=== PATIENT | female | born 1970 | race Caucasian/White ===

== ENCOUNTER 2016-10-07 01:07 | Inpatient (IN) | payer MEDICAID ==
[~2016-10-07] VITALS: Ht 152.4 cm; Wt 89.9 kg
--- NOTE | ~2016-10-07 | CON ---
PATIENT'S NAME: JULIAN [facility] AGE: 46 Y [address] ROOM: [address] [place] [id number] LOCATION: [facility] ADMIT DATE: 10/07/2016 Consultation DISCHARGE DATE: 10/07/2016 FAMILY PHYSICIAN: DEIDRA GARCIA ATTENDING PHYSICIAN: Jeff Ingram DATE OF CONSULTATION: 10/07/2016 REFERRING PHYSICIAN: Luis Bynum MD CARDIOLOGY CONSULTATION REASON FOR CARDIOLOGY CONSULTATION: Elevated cardiac enzymes. HISTORY OF PRESENT ILLNESS: This is a 46-year-old female, who had a daily bout of diarrhea for a total of one month which did resolve about 2 weeks ago. She then presented to an outside Emergency Department in [place] due to lower extremity weakness that was getting worse in an ascending fashion. She also has notation of neck weakness as well as blurry vision. She denies any actual sharp chest pain or radiation. She also denies any changes of shortness of breath, or dyspnea on exertion. She did have complaints of abdominal pain which radiated more to the left upper quadrant. 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 This consult was requested due to an elevated set of cardiac enzymes. Of note, she also has noted hypokalemia. Her previous history includes lupus, fibromyalgia, and hypertension. PAST MEDICAL HISTORY: 1. Hypertension. 2. Fibromyalgia. 3. History of DVT. 4. History of multiple miscarriages. 5. History of oral cancer. 6. Systemic lupus. PAST SURGICAL HISTORY: 1. Cholecystectomy. 2. Tonsillectomy. 3. Right knee surgery. 4. Appendectomy. FAMILY HISTORY: The patient's mother had a history of uterine cancer as well as coronary stenting. She ultimately due to a stroke. Her father also PATIENT'S NAME: MIDLOTHIAN [facility] AGE: 46 Y [address] ROOM: [address] [place], [place] [address] LOCATION: [facility] ADMIT DATE: 10/07/2016 Consultation DISCHARGE DATE: 10/07/2016 FAMILY PHYSICIAN: DEIDRA GARCIA ATTENDING PHYSICIAN: Jeff Ingram due to stroke, and her maternal grandmother had a history of myocardial infarction and hypertension. SOCIAL HISTORY: The patient is a current daily smoker. She smoked for a total of 35 years and states she is currently attempting to quit. She denies alcohol or illicit drug use. CURRENT MEDICATIONS: 1. Octagam IV daily. 2. Lovenox 40 mg subcutaneous daily in the evening. 3. KCl 40 mEq IV. 4. Azactam 2 g IV every 8 hours. MEDICATION ALLERGIES: Penicillin causing "throat to swell up." REVIEW OF SYSTEMS: Pertinent positive review of systems are listed in the HPI. All other review of systems evaluated and negative. LABORATORY DATA AND IMAGING STUDIES: Diagnostics: Cardiac enzymes show a CPK of 965, CK-MB of 4.3, and a troponin I of 0.105. She has a proBNP of 700. She has a D-dimer of 0.78. CMS evaluation shows a sodium of 139, potassium 1.6, BUN of 18, creatinine 1.0, and a glucose of 126. She has a magnesium of 1.8. PHYSICAL EXAMINATION: VITAL SIGNS: Temperature 98.5, pulse 90, respirations 16, blood pressure 135/73, and O2 saturation 94% on room air. The patient weighs 89.9 kg. SKIN: [place], warm, and dry. EYES: Sclerae clear. No xanthelasmas. ENT: Oral mucosa is pink and moist. No jugular venous distention. No carotid bruits. CHEST: Respirations are even and unlabored. LUNGS: Clear to auscultation. HEART: Regular rate and rhythm. Normal S1 and S2. No murmurs, rubs, or gallops. ABDOMEN: Soft and tender, but not rigid. MUSCULOSKELETAL: She has noted decreased muscle strength to upper and lower extremities bilaterally. There is also loss of deep tendon reflexes. EXTREMITIES: Peripheral pulses palpable. No clubbing, cyanosis, or edema. PSYCHIATRIC: Alert and oriented. Mood and affect are appropriate. IMPRESSION AND PLAN: PATIENT'S NAME: MARISSA JORDAN [facility] AGE: 46 Y [address] ROOM: [address] [place], [place] [address] LOCATION: [facility] ADMIT DATE: 10/07/2016 Consultation DISCHARGE DATE: 10/07/2016 FAMILY PHYSICIAN: DEIDRA GARCIA ATTENDING PHYSICIAN: Jeff Ingram Dr.: 1. Acute coronary syndrome versus a type 2 cardiac event. We will check an echocardiogram to fully evaluate her ejection fraction as well as to look for wall motion or valvular abnormalities. We will also check a lipid panel, amylase, lipase, and further evaluate cardiac enzymes. We will also get a manual white blood cell count and differential. 2. 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 Once again, under the care of Hospitalist Service as well as Neurology and possible plans to transfer the patient to a higher level of care. 3. We will continue to monitor, evaluate, and treat as appropriate. Thank you for this consult. Thank for allowing [facility] to interact in the care of this patient. LILLIAN REYES APRN FOR SHA-MD JASON CHATTERJEE/jamesl /[id number] d: 10/07/16 2355 t: 10/09/16 1551, CONSULTATION REPORT
--- NOTE | ~2016-10-07 | DS ---
PATIENT'S NAME: JULIAN [facility] AGE: 46 Y [address] ROOM: [place] [address] LOCATION: [facility] ADMIT DATE: 10/07/2016 Discharge Summary DISCHARGE DATE: 10/07/2016 FAMILY PHYSICIAN: DEIDRA GARCIA ATTENDING PHYSICIAN: Jeff Ingram ATTENDING PHYSICIAN: Ford Santiago M.D. PRIMARY CARE PHYSICIAN: None. FINAL DIAGNOSES: 1. 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 2. Bilateral lower extremity weakness. 3. Recent history of diarrhea. 4. History of systemic lupus erythematosus, not on any medications. 5. Remote history of deep venous thrombosis, not on any anticoagulation. 6. History of fibromyalgia, per reviewed records. 7. History of oropharyngeal cancer, treated per the patient. 8. Severe hypokalemia, improving. 9. Rsk-LX-lftxdhp elevation myocardial infarction. 10. Sepsis. 11. Pancreatitis. 12. Right nephrolithiasis. 13. Right-sided abdominal pain. CONSULTATIONS: 1. Cardiology, Dr. Bynum. 2. Neurology, Dr. Mir. PROCEDURES: Lumbar puncture. REASON FOR ADMISSION: This is a 46-year-old female, who was transferred from [facility] for progressively worsening muscle weakness and lack of deep tendon reflexes in bilateral lower extremity. The patient also had diplopia and blurry vision. Of note, she had a history of diarrhea about a couple weeks ago. The patient presented to an outlying ER and was then transferred to [facility] for higher level of care. Please see Dr. Ingram's admission H and P for further details. DIAGNOSTIC STUDIES: While at [facility], transthoracic echocardiogram was done that showed normal left ventricular contractility with ejection fraction of 60% to 65%. Grade 1 diastolic dysfunction was noted. Lactate was 3.5 on admission. After hydration, it was 3.4 at the time of discharge. Serial cardiac enzymes were done. CPK 1144 on admission, with PATIENT'S NAME: JULIAN [facility] AGE: 46 Y [address] ROOM: [place] [address] LOCATION: [facility] ADMIT DATE: 10/07/2016 Discharge Summary DISCHARGE DATE: 10/07/2016 FAMILY PHYSICIAN: DEIDRA GARCIA ATTENDING PHYSICIAN: Jeff Ingram hydration was trending down, and was 828 by the time of discharge. Troponin I 0.074 and was trending up and was 0.131 at the time of discharge. ProBNP 700. CBC showed a white count of 17.3, hemoglobin 14.7, hematocrit 40.7, and platelets 402. CMP showed potassium of 1.6. After aggressive treatment with potassium, the patient's potassium at the time of transfer was 1.9. Kidney function test was within normal range. Bicarb 34. Albumin 2.7. Liver function tests were normal except for AST of 61. Phos level 1.7, GFR 59, Mag 1.8, LDH 166, and ESR 35. Lipid panel was done and showed total cholesterol 180, triglycerides 266, HDL 42, and LDL 85. PT, INR, and PTT normal. UA showed 25 leukocytes and moderate bacteria with wbc casts. Amylase 86. Lipase 903 on admission. CK-MB 4.6 and subsequently was trended down and was 3.4. CRP 8.33. Complement levels were done; complement C3 of 137 and complement C4 of 28. Free T4 of 1.4. Procalcitonin level 0.14. D-dimer was elevated at 0.78. TSH 0.921. Lumbar puncture was done and showed CSF protein 50 and CSF glucose was 82. Lumbar puncture showed clear CSF, showed 304 rbc's and 2 wbc's with 33% neutrophils. BRADFORD pending. Aldolase pending. ASMA pending. Anti-Alicia-1 antibody pending. Hypercoagulable workup pending. Chest x-ray was done on admission and showed no vascular congestion or acute parenchymal infiltrate. The patient had a PICC line placed that showed right tip in the lower SVC. CT of the head without contrast was done since the patient reported fall about a couple days ago. CT of the head showed no acute intracranial pathology and no skull fracture was identified. For bilateral lower extremity weakness, CT of the thoracic spine without contrast was done that showed 11th rib-thoracic vertebrae with transitional L1. Height and alignment of thoracic vertebra were well maintained with no acute bone fractures at the thoracic spine. Mild scoliosis and mild degenerative changes noted. CT of the lumbosacral spine was done and showed transitional L1 vertebra with no acute bone fracture. No spinal stenosis identified. Right nephrolithiasis noted. CT of the abdomen and pelvis with contrast was done and showed distended stomach and proximal small bowel loops like raising the possibility of small bowel obstruction. Early versus partial obstructions level of the mid small bowel with some nondilated distal small bowel loops seen on the CT study. Colon not evacuated. No arterial thrombus identified at the abdomen or pelvis. Fatty infiltration of the liver was noted. Dependent atelectasis at the lung bases was detected. Marrufo catheter present in the bladder. Blood cultures were drawn and are pending at this point of time. Urine culture drawn and pending. CSF showed no bacteria and rare white blood cells. PATIENT'S NAME: MARISSA JORDAN [facility] AGE: 46 Y [address] ROOM: [address] [address] LOC[facility] ADMIT DATE: 10/07/2016 Discharge Summary DISCHARGE DATE: 10/07/2016 FAMILY PHYSICIAN: DEIDRA GARCIA ATTENDING PHYSICIAN: Jeff Ingram [facility] COURSE: This is a 46-year-old female, who had a 2-week history of diarrhea. The patient then developed ascending bilateral lower extremity weakness and had areflexia. The patient was not able to move her bilateral lower extremity and strength was 2/5. The patient was transferred from [facility] for bilateral lower extremity weakness and hypokalemia. For hypokalemia, the patient was treated with KCl. She received a total of 160 mEq of KCl at [facility]. She was receiving IV and p.o. KCl. Her potassium level improving, but still had severe hypokalemia by the time of discharge. Her potassium on admission was 1.6, at the time of discharge was 1.9. EKG was done and did not show any changes or any arrhythmia. The patient was in normal sinus rhythm. Dr. Orellana was consulted early in AM for line placement but we had a peripheral IV at that time and a PICC line was recommended. PICC line was only placed just prior to transfer. Discussed with Pharmacy about rate of KCl infusion through peripheral line and KCl was infused at that rate along with PO KCl replacement. At the time of transfer to [facility], the patient was still infusing 40 mEq of KCl IV. She also received p.o. KCl, but then developed nausea and so could not be given p.o. KCl. The hypokalemia was likely thought to be secondary to the history of diarrhea that the patient had reported. The patient's magnesium level was normal. The patient did not have any diarrhea. She stated that the diarrhea had resolved about a week ago. Given the patient's history of diarrhea and subsequent bilateral lower extremity weakness in an ascending fashion, Neurology was consulted upon arrival at [facility]. Teleneurology, Dr. Mir, was consulted. It was thought that the patient was likely having Guillain-[place] syndrome. IVIG treatment was then initiated based on Neurology recommendations. The patient received a dose of IVIG at [facility]. Neurology saw the patient later during the day and differential also included viral demyelinating illness at this point of time. The patient required an EMG and nerve conduction study per Neurology. Since we did not have capability for an EMG and nerve conduction study and also were not able to have a neurologist on board at the site, it was determined that the patient needed a specialist for neuromuscular disorder and higher level of care. The patient was transferred to [facility] in stable condition. The patient also had leukocytosis. Her lactate was elevated. Blood cultures were drawn and were pending at this point of time. Urine culture was pending as well. The patient was started on Azactam prior to transfer. She was hydrated aggressively with IV fluids, receiving several boluses during the day. She was also infusing IV fluids at the time of discharge. Her blood pressure was stable. Lactate was decreasing. The patient also had a CT of the abdomen done and findings are as above. CT of the abdomen showed that the patient had right nephrolithiasis with no evidence of hydronephrosis on CT scan. The patient also had signs and symptoms suggestive of small bowel obstruction. She was made n.p.o. She was PATIENT'S NAME: MARISSA JORDAN [facility] AGE: 46 Y [address] ROOM: [place] [address] LOC[facility] ADMIT DATE: 10/07/2016 Discharge Summary DISCHARGE DATE: 10/07/2016 FAMILY PHYSICIAN: DEIDRA GARCIA ATTENDING PHYSICIAN: Jeff Ingram hydrated with IV fluids. Pain was well controlled with morphine. The patient also had concern for pancreatitis. Her lipase was 903 on admission. She was given IV antibiotics, IV fluids, and pain medication for pancreatitis as well. The patient has a history of SLE, not on any medications. She also has a history of DVT in the remote past and has finished a course of anticoagulation. She is currently not on any anticoagulation. She has a history of fibromyalgia as well and reported a history of oropharyngeal cancer, for which she was treated. The patient is a poor historian and was not able to give much history. The patient also had NSTEMI during this admission, unclear if this was secondary to sepsis. Her troponin was elevated and was trending upward. CPK was trending downward. Cardiology was consulted. No acute ST changes were noted. Dr. Bynum did a bedside echocardiogram and there were no wall motion abnormalities. Her ejection fraction was normal. We will trend cardiac enzymes. It was noted to the patient and her family that the patient required transfer to higher level of care and neurologist and neuromuscular specialist opinion. The patient will need an EMG and nerve conduction study for definitive diagnosis and further recommendations for GBS. She will also need treatment for severe hypokalemia and likely sepsis. Dr. Ordonez, hospitalist team, at [facility] was accepting physician. The patient will be transferred to [facility] in stable condition. At the time of transfer, the patient was in stable condition with stable vital signs, which were communicated to Dr. Ordonez. Her EKG showed normal sinus rhythm. DISCHARGE INSTRUCTIONS: The patient is n.p.o. currently. She is getting IV fluids at 70 mL/h. She is also getting KCl 40 mEq. She has a PICC line in place that was placed during this admission. PICC line was inserted just prior to discharge. She will be on bedrest. She will be transported by ground transport ambulance with ACLS support to [facility]. Accepting physician is Dr. Ordonez. The patient transferred to [facility] in stable condition. DISCHARGE MEDICATIONS: 1. Azactam 2 grams IV q.8 hours. 2. Normal saline at 70 mL/h. 3. KCl 40 mEq IV x1 over 4 hours. 4. Morphine 1 to 2 mg IV q.4 hours p.r.n. for pain. 5. IVIG treatment. IVIG 10%, 5-gram vial, 150 mL IV daily for 5 days. PATIENT'S NAME: MARISSA JORDAN [facility] AGE: 46 Y [address] ROOM: [address] [address] LOCATION: [facility] ADMIT DATE: 10/07/2016 Discharge Summary DISCHARGE DATE: 10/07/2016 FAMILY PHYSICIAN: DEIDRA GARCIA ATTENDING PHYSICIAN: Jeff Ingram First dose received at [facility] on 10/07/2016. 6. Zofran 4 mg IV q.4 hours p.r.n. for nausea/vomiting. All home medications were stopped since the patient was n.p.o. during this admission. This patient was managed by Hospitalist, Cardiology, and Neurology teams during this admission. FORD SANTIAGO MD MT/lloyd /[id number] d: 10/07/162012 t: 10/22/16 0415, DISCHARGE SUMMARY
--- NOTE | ~2016-10-07 | ECHO ---
Transthoracic Echocardiography Report (TTE) Demographics Patient Name MARISSA JORDAN Date of Study 10/07/2016 Patient Number [id number] Visit Number [id number] Date of 1970 Room Number [address] Gender Female Number Age 46 year(s) Referring Fletcher Bartholomew Pyrometer Operator Shiloh Alatorre MD [facility] Nataly Epstein MD Physician Interpreting [facility] [place] [employer] Professional Physician [place] Alatorre MD Supervising Ordering MD/MLP Physician Nurse Stress Office Equipment Technician Conclusions Contractility Score Summary Normal Left Ventricular contractility was noted. Summary The estimated left ventricular ejection fraction is 60-65%. Normal left ventricle size and function. Diastolic assessment reveals Grade I diastolic dysfunction. Mild tricuspid regurgitation by color Doppler. Procedure Type of Study TTE procedure:2D Echocardiogram. Procedure Date Date: 10/07/2016 Start: 12:35 PM Study Location: Inpatient Portable Technical Quality: Adequate visualization Indications:Abnormal ECG. Appropriate Use Criteria: 9 Patient Status: Routine HR: 94 bpm BP: 135/73 mmHg M-Mode/2D Measurements LV Diastolic Dimension: 3.89 cm LV Systolic Dimension: 2.54 cm LV Septum Diastolic: 1.04 cm LV PW Diastolic: 1.04 cm AO Root Dimension: 1.8 cm Cardiac Output: 5.31 l/min LA Dimension: 2.8 cm EF Estimated: 65 % LVOT: 2 cm LVOT VTI: 18 cm LV Stroke volume: 56.52 ml Doppler Measurements AV Peak Velocity: 1.97 m/s MV Peak E-Wave: 1.18 m/s AV Peak Gradient: 15.52 mmHg MV Peak A-Wave: 1.12 m/s AV Mean Gradient: 7 mmHg MV E/A Ratio: 1.05 LVOT Peak Velocity: 1.71 m/s MV P1/2t: 43 msec TR Gradient:10.24 mmHg PV Peak Velocity: 1.87 m/s Estimated RAP:10 mmHg PV Peak Gradient: 13.99 mmHg Estimated RVSP: 20 mmHg Estimated PASP: 20.24 mmHg E' Septal Velocity: 0.1 m/s A' Septal Velocity: 0.13 m/s E' Lateral Velocity: 0.12 m/s A' Lateral Velocity: 0.12 m/s Findings Left Ventricle Normal left ventricle size and function. Diastolic assessment reveals Grade I diastolic dysfunction. Right Ventricle Normal right ventricle structure and function. Left Atrium Normal left atrial size. Right Atrium Normal right atrial size. IVC measures 1.6 cm with inspiratory collapse. Mitral Valve Normal mitral valve structure and function. Aortic Valve Normal aortic valve structure and function. Tricuspid Valve Mild tricuspid regurgitation by color Doppler. Pulmonic Valve Normal pulmonic valve structure and function. Contractility Score LV regional wall motion:(0-Non visualized 1-Normal 2-Hypokinesis 3-Akinesis 4-Dyskinesis 5-Aneurysm) Signature dtt: Luis Bynum dtd: 10/07/16 1235 Physician Self Edit
--- NOTE | ~2016-10-07 | CON ---
PATIENT'S NAME: [facility] AGE: 46 Y [address] ROOM: [id number] [place], [place] [id number] LOCATION: [facility] ADMIT DATE: 10/07/2016 Consultation DISCHARGE DATE: FAMILY PHYSICIAN: DEIDRA GARCIA ATTENDING PHYSICIAN: ROHINI MEDEIROS DATE OF CONSULTATION: 10/07/2016 REFERRING PHYSICIAN: Luis Bynum MD TIME: 10:55 a.m. CHIEF COMPLAINT: Muscle weakness, diplopia, vertigo, and blurred vision. HISTORY OF PRESENT ILLNESS: This is a 46-year-old female who says she was having non-bloody diarrhea on a daily basis for around a month and that was resolved 2 weeks ago. Four days ago, she states she started having posterior neck muscle weakness where she was having a hard time lifting her head. She was also developing bilateral blurry vision and diplopia with vertigo. The neck weakness did resolve and the blurry vision and vertigo improved. Two days ago, she developed a new onset of bilateral lower extremity muscle weakness. This weakness started at both her feet and now it is up to her hips. She also at that time, developed some epigastric pain with radiation to the left upper quadrant. Currently, she denies any diarrhea, nausea, vomiting, or any constipation. Because of her symptoms, she went to a hospital in [place] for the worsening bilateral lower extremity weakness and now the weakness started affecting her upper extremities as well. She still has off and on bilateral blurry vision and diplopia. She has never had any of these symptoms before. Nothing seems to make the symptoms better or worse. REVIEW OF SYSTEMS: She denies any recent travel. Denies any recent illness other than the diarrhea and gastrointestinal illness as mentioned above. Denies fever, chills, or night sweats. Denies being exposed to anyone ill. Denies changes in weight, appetite. PAST MEDICAL HISTORY: 1. Systemic lupus, diagnosed in 2007. She was on steroids for that, but they were stopped 2 years ago. 2. Hypertension. 3. Fibromyalgia. 4. Remote history of left lower extremity DVT. She was on anticoagulation therapy for this. Of note, she has suffered 4 miscarriages also. PATIENT'S NAME: [facility] AGE: 46 Y [address] ROOM: [id number] [place], [place] [id number] LOCATION: [facility] ADMIT DATE: 10/07/2016 Consultation DISCHARGE DATE: FAMILY PHYSICIAN: DEIDRA GARCIA ATTENDING PHYSICIAN: ROHINI MEDEIROS Antiphospholipid antibody test is pending. 5. 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 This was treated with shots inside her mouth. The patient states that this has been cured. ALLERGIES: PENICILLIN, WHICH CAUSES ANAPHYLAXIS. MEDICATIONS: Home medications are on the chart and reviewed by me. The medications that play a part in her strength could be: 1. Valium 5 mg b.i.d. p.r.n. 2. Neurontin 400 mg t.i.d. 3. Atarax 100 mg at bedtime. 4. Zanaflex 4 mg q.4 hours p.r.n. 5. She has received her 1st dose of IVIG, dosed at 0.4 g/kg. SOCIAL HISTORY: The patient was a former cigarette smoker and quit in June 2016. She smoked 1-pack per day, since age of 13. No alcohol or illegal drug use. PAST SURGICAL HISTORY: Includes a cholecystectomy, a tonsillectomy, a right ectopic surgical repair, and an appendectomy. FAMILY HISTORY: Includes her mother suffers from epilepsy and Alzheimer dementia. She also has type 2 diabetes and her father suffers from hypertension. There is no mention of any sort of blood clot in her 1st degree or other relatives. PHYSICAL EXAMINATION: VITAL SIGNS: At the time of the dictation the temperature was 98.5, heart rate 81, respirations 18, blood pressure 115/61, and O2 saturations were 98% on room air. Pain is 5/10 in the bilateral lower extremities and pain also elicited during the exam in her shoulder blades, which she states is chronic due to her fibromyalgia. GENERAL APPEARANCE: The patient has a flat affect, but she is certainly alert and cooperates with the exam. HEENT: Pupils are equally round and reactive to light. Extraocular muscles intact. No nystagmus noted. Anicteric sclerae. NECK: Shows no JVD. No lymphadenopathy. No nuchal rigidity. She is able to lift her head off the pillow. CARDIOVASCULAR: Shows a regular rate and rhythm. Normal S1, S2 without murmur, rub, or gallop. RESPIRATORY: Respiratory rate is clear. Chest wall is nontender to palpation. Of note, her NIF is -50. PATIENT'S NAME: MARISSA [facility] AGE: 46 Y [address] ROOM: [id number] [place], [place] [id number] LOCATION: [facility] ADMIT DATE: 10/07/2016 Consultation DISCHARGE DATE: FAMILY PHYSICIAN: DEIDRA GARCIA ATTENDING PHYSICIAN: ROHINI MEDEIROS ABDOMEN: Soft, mildly tender to palpation in the epigastric and the left upper quadrant. No rebound tenderness. Bowel sounds are present. EXTREMITIES: No edema in her extremities. Pulses 2+. NEUROLOGIC: She is alert, but again a flat affect. Cranial nerves 2 through 12 are intact. She is able to shrug her shoulders, although the exam appears weak, maybe a 3/5. There is no facial droop. No slurred speech. No facial asymmetry. EXTREMITIES: Her upper extremities are about 2/5 and areflexic. Her lower extremities are about 1/5 and areflexic. Sensation to pinprick and light touch is intact. Again noted, the DTRs are areflexic in knee and triceps area. Proprioception is intact and vibration is intact. Gait is not assessed due to the patient's weakness. I am not for certain, we are getting the patient's best effort because she is able to plantar flex with a strength of about 4/5. LABORATORY VALUES: Include a CPK of 952 and MB of 4.6. Her Gram-stain of the CSF was negative. In further regards to her CSF, there were 304 RBCs and 4 WBCs. The neutrophils were at 33% and the lymphocytes of 42%. The protein count was 50 and the glucose count was 82. Of note, her total albumin was 2.7, her protein was 5.7, her AST was slightly elevated at 61, and her lactate upon admission was 3.5. Her CBC did show white cells of 17.57, hemoglobin of 15.9, hematocrit of 43.8, MCV 82.3, and platelets 342. Neutrophil predominance of 78% without any bands. Her TSH was measured at 0.312. Sodium 140, potassium 2.6, chloride 93, CO2 28, anion gap 18, glucose 95, BUN 21, creatinine 0.9. Her GFR was 67. Her serum osmolality was 289 and her calcium was 11.2. CRP was 4.66 and her ESR was 15. Her urine drug screen was positive for benzodiazepines. A CT of her head did show no acute intracranial pathology. A CT of her thoracic spine showed 11 rib thoracic vertebra with the Transitional L1. Height and alignment of the thoracic vertebra are maintained with no acute bone fractures. There is a mild scoliosis at the thoracic spine and mild degenerative changes to the mid and lower thoracic intervertebral levels. The lumbar spine CT and also the abdomen and pelvis CT official reports are pending. ASSESSMENT AND PLAN: The differential certainly must include Guillain-Sandy syndrome. She did have an episode of recent diarrhea as stated by the patient's statement of ascending bilateral symmetrical weakness. She is areflexic also. Lumbar puncture is pending. The patient truly needs a nerve conduction study to evaluate for F-waves to make a definitive diagnosis on Guillain-Sandy diagnosis, since her protein was 50. Other diagnosis is to consider could be a viral illness that has become systemic and resulted in the patient's weakness. The definitive indicator would be the nerve conduction study, which unfortunately we do not have access to this week. The diagnosis were PATIENT'S NAME: MARISSA [facility] AGE: 46 Y [address] ROOM: [place] [id number] LOCATION: [facility] ADMIT DATE: 10/07/2016 Consultation DISCHARGE DATE: FAMILY PHYSICIAN: DEIDRA GARCIA ATTENDING PHYSICIAN: ROHINI MEDEIROS discussed with Dr. Cutler. Dr. Mir examined the patient with me. Further recommendations would probably be to obtain this nerve conduction study, which may result in transfer of the patient. Thank you for including us in this patient's plan of care. If you have any questions, please notify me. SHIRLEY VALDIVIA APRN FOR NITIN MIR MD PP/lloyd /[id number] d: 10/07/16 1507 t: 10/10/16 1221, CONSULTATION REPORT
--- NOTE | ~2016-10-07 | HP ---
PATIENT'S NAME: MARISSA JORDAN [facility] AGE: 46 Y [address] ROOM: [id number] [place], [place] [id number] LOCATION: [facility] ADMIT DATE: 10/07/2016 History & Physical DISCHARGE DATE: FAMILY PHYSICIAN: PHYSICIAN, UNKNOWN ATTENDING PHYSICIAN: ROHINI MEDEIROS DATE OF SERVICE: CHIEF COMPLAINT: Progressively worsening muscle weakness and lack of deep tendon reflex starting in bilateral lower extremity followed by bilateral upper extremity, as well as bilateral diplopia and the blurry vision for the last 4 days. HISTORY OF PRESENT ILLNESS: This is a 46-year-old female who says that she was having nonbloody diarrhea almost on a daily basis for 1 month and resolved about 2 weeks ago. She says that she sometimes eats cooked chicken or meat, but she was not sure why she was having this diarrhea. Diarrhea resolved about 2 weeks ago already. Everything happened about 4 days ago. She states that 4 days ago, she started to experience a posterior neck muscle weakness, where she was having a hard time lifting up her neck. At the same time, she was having this on and off bilateral blurry vision and also diplopia associated with on and off vertigo. Eventually, the neck muscle weakness as well as the blurry vision and double vision in both eyes and the vertigo improved. However, 2 days ago, she started developing this new onset bilateral lower extremity muscle weakness; it is an ascending type of weakness, starting from both feet, now all the way up to both hips. At the same time, 2 days ago, she also complained of epigastric pain with radiation to the left upper quadrant. She denies any diarrhea or any nausea or vomiting or any constipation. Today, she went to the outside facility in [place] because of the worsening bilateral lower extremity weakness in ascending fashion, now affecting the both upper extremity all the way to both elbows, and still with on and off bilateral blurry vision and diplopia. She denies any dysphagia or odynophagia or any recent sick contact or any recent long distance travel. Upon further questioning, I was able to realize that the patient also has multiple miscarriages in the past, about 4 consecutive miscarriages in the past, and also she has a history of a prior left lower extremity DVT many years ago, already finished a course of anticoagulation agent at that time. She also has a known history of systemic lupus erythematosus, diagnosed in 2007. She was on steroids, prednisone for a while, but then she stopped that 2 years ago. The patient denies any dyspnea at rest or any respiratory muscle weakness. She got occasional exertional dyspnea recently. No leg edema. She has never felt like this before in terms of her bilateral lower extremity weakness in ascending fashion all the way to the bilateral upper extremity. PATIENT'S NAME: MARISSA JORDAN [facility] AGE: 46 Y [address] ROOM: [id number] [place], [place] [id number] LOCATION: [facility] ADMIT DATE: 10/07/2016 History & Physical DISCHARGE DATE: FAMILY PHYSICIAN: PHYSICIAN, UNKNOWN ATTENDING PHYSICIAN: ROHINI MEDEIROS She also has never had this severe epigastric pain radiating to the left upper quadrant, and she also has never had this blurry vision and vertigo and diplopia and posterior neck muscle weakness in the past either. REVIEW OF SYSTEMS: As mentioned in the history of present illness. All other systems reviewed and negative except for those mentioned in the history of present illness. PAST MEDICAL HISTORY: 1. Systemic lupus erythematosus, diagnosed in 2007. She was on steroids, prednisone for a few years, but she stopped that 2 years ago. 2. Hypertension. 3. Fibromyalgia. 4. Remote history of left lower extremity DVT, status post a course of anticoagulation medication in the past, already finished. 5. 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 6. 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 She says that she did not get any radiation or chemotherapy or any resection, but instead she was given some shots inside the mouth to fix a cancer. Details not clear. The patient could not remember who was the surgeon that treated her. It was diagnosed and treated in [place], [place]. The patient states that she is already cured and never had metastasis. Again, details not clear. ALLERGIES: PENICILLIN, WHICH CAUSES ANAPHYLAXIS. HOME MEDICATIONS: Currently is being reconciled with the patient's pharmacy. SOCIAL HISTORY: She was a former cigarette smoker. She quit in June 2016. She used to smoke about 1 pack per day since she was 13 years' old. She denies any alcohol or any illegal drug use. PAST SURGICAL HISTORY: Status post cholecystectomy, status post tonsillectomy, status post right ectopic surgical repair in the past, and status post appendectomy. FAMILY HISTORY: Mother suffers from epilepsy, Alzheimer dementia, and type 2 diabetes, and father suffers from hypertension. PHYSICAL EXAMINATION: VITAL SIGNS: At the time of my dictation, temperature 98.5, heart rate 81, PATIENT'S NAME: MARISSA JORDAN [facility] AGE: 46 Y [address] ROOM: [place] [id number] LOCATION: [facility] ADMIT DATE: 10/07/2016 History & Physical DISCHARGE DATE: FAMILY PHYSICIAN: PHYSICIAN, UNKNOWN ATTENDING PHYSICIAN: ROHINI MEDEIROS respiration 18, blood pressure 115/61, and saturation 98% on room air. Pain 4/10 in the bilateral lower extremities, which is chronic; she states it is due to her fibromyalgia. GENERAL APPEARANCE: Alert and oriented x3, in no acute distress. HEENT: Pupils are equally round and reactive to light. Extraocular muscles intact. No vertical and no horizontal nystagmus. Visual field in all 4 quadrants intact. Anicteric sclerae. Nasal turbinates are normal bilaterally. Moist oral mucosa. NECK: No JVD. No cervical lymphadenopathy. No neck stiffness. Brudzinski sign negative. CARDIOVASCULAR: Regular rate and rhythm. Normal S1, S2. No murmurs, no rubs, no gallops. RESPIRATORY: Clear. Chest wall is nontender to palpation. ABDOMEN: Obese, soft, mildly tender to palpation in the epigastric and to the left upper quadrant area, no rebound tenderness, no abdominal rigidity, no palpable mass, no hepatosplenomegaly on palpation, and bowel sounds are present. EXTREMITIES: No edema in the upper or lower extremities. NEUROLOGIC: Alert and oriented x3. Cranial nerves 2 to 12 are significant for bilateral shoulder shrugging weakness, 2-3/5. No facial droop. No slurred speech. No tongue deviation upon protrusion. No facial asymmetry. Pronator drift cannot be fully performed given that she has muscle weakness about 2/5 in the bilateral upper extremity and about 1/5 in the bilateral lower extremity in a symmetrical fashion. Sensation intact. [id number] cannot be performed due to muscle weakness. [id number]-jh-[id number] cannot be performed due to muscle weakness. Deep tendon reflexes are areflexic in bilateral knee and also in bilateral triceps area. Proprioception intact. Vibration intact. Babinski negative bilaterally. Gait is not assessed given that the patient cannot even stand up due to bilateral lower extremity muscle weakness. No slurred speech. SKIN: No ulcer, no rash, no cyanosis. MUSCULOSKELETAL: She has flaccid, bilaterally symmetrical paralysis in bilateral lower extremities and also bilateral upper extremities; the lower extremities are worse than the upper extremities. Muscle strength is about 1/5 in bilateral lower extremities and about 2-3/5 in the bilateral upper extremities. GENITOURINARY: Not examined given that it is not related to this admission. LABORATORY DATA: Currently, labs are pending, but laboratory data from the outside facility on admission showed white blood cells 17.57, hemoglobin 15.9, hematocrit 43.8, MCV 82.3, and platelets 342; neutrophil predominance of 78% without any bands. TSH 0.312. Sodium 140, potassium 2.6, chloride 93, CO2 of 28, anion gap 18, glucose 95, blood urea nitrogen 21, creatinine 0.9, GFR 67, serum osmolarity 289.8, calcium 11.2, ALP 65, AST 68, ALT 41, total protein 6.2, albumin 3.5, PATIENT'S NAME: MARISSA JORDAN [facility] AGE: 46 Y [address] ROOM: [place] [id number] LOCATION: [facility] ADMIT DATE: 10/07/2016 History & Physical DISCHARGE DATE: FAMILY PHYSICIAN: PHYSICIAN, UNKNOWN ATTENDING PHYSICIAN: ROHINI MEDEIROS globulin 2.7, total bilirubin 0.8, CRP 4.66. Urine drug screen, positive for benzodiazepine. ESR 15. Urinalysis shows 30 of urine protein and negative urine glucose, 3 to 5 urine white blood cells and negative urine nitrite or urine leukocyte. IMAGING STUDIES: EKG from the outside facility on admission shows sinus rhythm, heart rate of 69 beats per minute with normal QTc, normal QRS, and normal NH interval and duration. No findings to suggest acute ischemia. ASSESSMENT AND PLAN: 1. 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 I will consult Neurology to see if okay to start IVIG, the dosing will be 0.4 g/kg per day for 5 days, and I will call the respiratory therapist to come by stat to perform the bedside forced vital capacity and also the negative inspiratory force to monitor for any impending respiratory failure that could warrant emergent intubation. I will also coordinate the lumbar puncture with [employer] to perform lumbar puncture to look for albuminocytologic dissociation where the total protein will be high and the white blood cell will be low consistent with Guillain-Hawi syndrome. If it is equivocal, then I will consider getting a nerve conduction study and electromyogram. The forced vital capacity and negative inspiratory force, volume will be done by RT every 4 hours. In case, the patient develops impending respiratory failure, the patient will go to ICU for intubation, but for now the patient can stay in the neurotrauma unit. Regarding the second differential in her case, it could be from hypokalemia. Currently, the potassium is pending. The patient already got 40 mEq p.o. from the outside facility prior to being transferred here. I will replace her with more potassium as necessary. EKG, no hypokalemic changes. The third differential could be dermatomyositis or polymyositis. Less likely will be a dermatomyositis or polymyositis given that there is no typical Gottron papule and there is no classical heliotrope rash on the face and the weakness of the muscle is symmetrical from distal to proximal whereas typically in dermatomyositis and polymyositis the muscle weakness is proximal only. However, it could still be on the differential; therefore, I am going to check the antibody which includes anti-Alicia-1 antibody. The other differential could be from hypothyroidism. Her TSH was mildly decreased from the outside facility. I am going to repeat a TSH here including a free T4 and free T3 and also check a Graves disease TSI antibody. She does not have any goiter on exam and there is no proptosis on my examination. Depending on the level of the TSH and antibody, if the PATIENT'S NAME: MARISSA JORDAN [facility] AGE: 46 Y [address] ROOM: [id number] [place], [place] [address] LOCATION: [facility] ADMIT DATE: 10/07/2016 History & Physical DISCHARGE DATE: FAMILY PHYSICIAN: PHYSICIAN, UNKNOWN ATTENDING PHYSICIAN: ROHINI MEDEIROS patient really has a Graves disease, then she should be properly treated. The next differential could be from steroid induced; however, the patient already stopped steroid 2 years ago. Therefore, this will be less likely. The other differential could be myasthenia gravis; however, the presentation usually involves the facial muscle first from the descending fashion, in this case it is opposite. Either way, she is already getting IVIG, which is also the treatment for myasthenia gravis. Myasthenia gravis is less likely in this case given that the muscle weakness in the face usually gets worse with use. On my examination, currently there is no ptosis. However, she did have a double vision 4 days ago. Therefore, myasthenia gravis should still be in the differential. Therefore, I am going to check her for an antiantibody for acetylcholine receptor antibody. If positive, the patient should get treatment and also have a CT of the neck to rule out thymoma. Of all the differential diagnosis, my first one will still be the Guillain-Hawi syndrome. I am going to consult Neurology right now from the [facility] to see if the Neurology has any other recommendation or further workup or difference in opinion in the plan of approach. 2. Regarding her systemic lupus erythematosus: I will check anti-double stranded DNA and anti-Jo antibody to confirm lupus and to see if she has a flare of lupus attack. Due to her history of frequent miscarriage and also deep vein thrombosis of the left lower extremity in the past, she also has a high risk of having antiphospholipid syndrome. I will check the antiphospholipid syndrome antibody, and if positive and due to her prior history of deep vein thrombosis in the left lower extremity, then in that case the patient should be put on anticoagulation long-term. Because she has severe epigastric pain with radiation to left upper quadrant, I am worried she may have some thrombosis in one of the veins or arteries inside the abdomen. Therefore, I am going to get a CT abdomen and pelvis with contrast to rule out any thrombosis. Her kidney function is normal, GFR is more than 60, and she does not have any IV contrast or oral contrast allergy. 3. Regarding her hypertension: Currently, her blood pressure is under good control and her home medication currently is being reconciled. Will follow up once the home medication list is ready. 4. Regarding her hypokalemia: I will replace if necessary. 5. Regarding her fibromyalgia: Currently, her home medication is being reconciled. Will address that after the medication list is ready. 6. Epigastric pain: I will check a CT abdomen and pelvis with contrast to rule out any thrombosis inside the blood vessel, as well as check a lipase and amylase to rule out pancreatitis. The patient is status post cholecystectomy and appendectomy. CT scan will also rule out any small bowel obstruction as well given that she has multiple abdominal surgeries in the past including appendectomy, cholecystectomy, and ectopic surgery on the right side. Further plan depends on clinical PATIENT'S NAME: MARISSA JORDAN [facility] AGE: 46 Y [address] ROOM: [id number] [place], [place] [address] LOCATION: [facility] ADMIT DATE: 10/07/2016 History & Physical DISCHARGE DATE: FAMILY PHYSICIAN: PHYSICIAN, GALEN ATTENDING PHYSICIAN: ROHINI MEDEIROS. 7. Deep vein thrombosis prophylaxis: The patient is on Lovenox subcutaneous and compression devices. Further plan depends on Neurology evaluation, and I am going to call the [employer] right now to perform the lumbar puncture and also call the Neurology for further recommendation. Time spent on the day of admission 50 minutes including chart review, interviewing and examining the patient, addressing all the questions and concerns the patient had, and going over the plan of care with the patient and the nurses. Further plan will be managed by the incoming hospitalist who will be taking over the care starting 10/07/16 at 8 AM. ROHINI MEDEIROS MD CC/lloyd /[id number] D: [id number] T: [id number] HISTORY & PHYSICAL
[2016-10-07 07:00] LABS: BASOPHIL # 0.1 K/uL (0.0-0.2); BASOPHIL % 0.3 %; EOSINOPHIL # 0.1 K/uL (0.0-0.5); EOSINOPHIL % 0.6 %; HEMATOCRIT 40.7 % (33.0-46.0); HEMOGLOBIN 14.7 g/dL (10.0-15.0); IMMATURE GRANULOCYTE # 0.1 K/uL (0.0-0.3); IMMATURE GRANULOCYTE % 0.4 %; LYMPHOCYTE # 2.3 K/uL (0.8-4.0); MCH 29.7 pg (27.0-34.0); MCHC 36.1 gm/dL (32.0-36.5); MCV 82.2 fl (83.0-98.0); MONOCYTE % 5.7 %; MPV 10.6 fl (9.4-12.4); NEUTROPHIL # (ANC) 13.9 K/uL (1.8-7.8); NRBC % 0 /100WBC (0-0.00); PLATELET COUNT 402 K/uL (150-450); RBC 4.95 M/uL (3.50-5.50); RDW-CV 16.1 % (11.9-14.6); WBC 17.3 K/uL (4.0-11.0)
[2016-10-07 07:07] LABS: PROTIME 10.7 SECONDS (9.6-11.1); PTT 25 SECONDS (25-32)
[2016-10-07 07:23] LABS: CALCIUM 9.9 mg/dL (8.5-10.5); MAGNESIUM 1.8 mg/dL (1.3-2.6)
[2016-10-07 07:36] LABS: ALBUMIN 2.7 gm/dL (3.5-5.0); TOTAL BILIRUBIN 0.8 mg/dL (0.0-1.5); TOTAL PROTEIN 5.7 g/dL (6.0-8.4)
[2016-10-07 07:37] LABS: ANION GAP 10.6 (10.0-19.0); PHOSPHORUS 1.7 mg/dL (2.5-4.9); POTASSIUM 1.6 mMol/L (3.7-5.1)
[2016-10-07 08:59] LABS: BILIRUBIN URINE NEGATIVE (NEGATIVE); BLOOD URINE 250 /UL (NEGATIVE); COLOR URINE YELLOW (YELLOW); GLUCOSE URINE NEGATIVE (NEGATIVE); KETONE URINE NEGATIVE (NEGATIVE); LEUKOCYTES URINE 25 /UL (NEGATIVE); NITRITE URINE NEGATIVE (NEGATIVE); PROTEIN URINE 30 mg/dL (NEGATIVE); TURBIDITY URINE CLEAR (CLEAR); UROBILINOGEN URINE NORMAL (NORMAL)
[2016-10-07] MEDS ORDERED: VALIUM5 MG PO (09:13)
[2016-10-07] MEDS ORDERED: CYMBALTA60 MG PO (09:13)
[2016-10-07] MEDS ORDERED: ATARAX25 MG PO (09:19)
[2016-10-07] MEDS ORDERED: LOPRESSOR100 MG PO (09:22)
[2016-10-07] MEDS ORDERED: COZAAR50 MG PO (09:22)
[2016-10-07] MEDS ORDERED: CARAFATE1 GM/10 ML PO (09:24)
[2016-10-07] MEDS ORDERED: CELEBREX200 MG PO (09:24)
[2016-10-07] MEDS ORDERED: HYDROCHLOROTHIA50 MG PO (09:24)
[2016-10-07] MEDS ORDERED: ZANAFLEX4 MG PO (09:29)
[2016-10-07] MEDS ORDERED: NEURONTIN400 MG PO (09:32)
[2016-10-07] MEDS ORDERED: ONDANSETRON ODT4 MG PO (09:33)
[2016-10-07 09:34] LABS: BACTERIA URINE MODERATE (NEGATIVE); MUCUS URINE 1+ (NEGATIVE)
[2016-10-07] MEDS ORDERED: TYLENOL EXTRA500 MG PO (09:34)
[2016-10-07 12:55] LABS: ABSOLUTE NEUTROPHIL CT (ANC) 13.3 K/uL (1.8-7.8); BANDED NEUTROPHIL # 0.5 K/uL (0.0-0.1); BANDED NEUTROPHILS % 3 %; LYMPHOCYTE # 2.8 K/uL (0.8-4.0); LYMPHOCYTE % 16 %; MONOCYTE # 1.2 K/uL (0.0-1.0); SEGMENTED NEUTROPHIL # 12.8 K/uL (1.8-7.8); SEGMENTED NEUTROPHIL % 74 %
[2016-10-10 20:38] LABS: ACETYLCHOLINE RECEPT BIND. AB <0.30 nmol/L (<0.31)
== END 2016-10-07 20:11 | disposition hospice, home (50) | DRG 853 ==
LOC: GNTU 01:07
PROVIDERS: Family Medicine; ADMIT Internal Medicine
PROC: 009Y3ZX Drainage of Lumbar Spinal Cord, Percutaneous Approach, Diagnostic (ICD-10-PCS; principal; 2016-10-07)
PROC: 02HV33Z Insertion of Infusion Device into Superior Vena Cava, Percutaneous Approach (ICD-10-PCS; 2016-10-07)
DX: A41.9 Sepsis, unspecified organism (principal); I21.4 Non-ST elevation (NSTEMI) myocardial infarction; M32.9 Systemic lupus erythematosus, unspecified; K85.90 Acute pancreatitis without necrosis or infection, unspecified; Z86.718 Personal history of other venous thrombosis and embolism; I10 Essential (primary) hypertension; M79.7 Fibromyalgia; E87.6 Hypokalemia; Z85.818 Personal history of malignant neoplasm of other sites of lip, oral cavity, and pharynx; M62.81 Muscle weakness (generalized); N20.0 Calculus of kidney; Z87.891 Personal history of nicotine dependence
CPT/HCPCS: C1751; J1568; J2270; J2405; J3480; J7030; J7040; J7050

== ENCOUNTER → 2016-10-07 | Outpatient (CLI) | payer MEDICAID ==
[~2016-10-07] MED LIST: ATARAX25 MG PO; CARAFATE1 GM/10 ML PO; CELEBREX200 MG PO; COZAAR50 MG PO; CYMBALTA60 MG PO; HYDROCHLOROTHIA50 MG PO; LOPRESSOR100 MG PO; NEURONTIN400 MG PO; ONDANSETRON ODT4 MG PO; TYLENOL EXTRA500 MG PO; VALIUM5 MG PO; ZANAFLEX4 MG PO
== END | disposition disaster alternative care site (69) ==
LOC: GAMB 19:12
DX: R10.84 Generalized abdominal pain (principal); R10.12 Left upper quadrant pain; R10.13 Epigastric pain; K56.60 Unspecified intestinal obstruction; Z88.0 Allergy status to penicillin; Z91.030 Bee allergy status
CPT/HCPCS: A0425; A0426; J2270